=== PATIENT | male | born 1955 | race Caucasian/White ===

== ENCOUNTER 2017-06-22 20:33 | Inpatient (IN) ==
[2017-06-22 21:59] LABS: Bilirubin,Urine Negative (Negative); Blood,Urine Negative (Negative); Clarity,Urine Clear (Clear); Color,Urine Yellow (Yellow); Glucose,Urine (UA) >=1000 mg/dL (Normal); Ketones,Urine Negative (Negative); Leukocyte Esterase,Urine Negative (Negative); Nitrite,Urine Negative (Negative); Protein,Urine Negative (Neg-Trace); Specific Gravity,Urine > 1.030 (1.010-1.025); Urobilinogen,Urine Normal (Normal)
[2017-06-22 22:15] LABS: Basophils # 0.1 K/mcL (0.0-0.2); Basophils % 0.4 %; Eosinophils # 0.1 K/mcL (0.0-0.6); Eosinophils % 1.2 %; Hematocrit 45.7 % (37.5-50.1); Hemoglobin 15.5 g/dL (12.9-16.9); Immature Granulocytes % 0.5 % (0-4); Lymphocytes # 2.4 K/mcL (0.6-4.6); Lymphocytes % 20.8 %; Mean Corpuscular HGB Conc 33.9 g/dL (31.6-35.5); Mean Corpuscular Hemoglobin 28.1 pg (28.0-33.3); Mean Corpuscular Volume 82.9 fL (83.0-100.0); Mean Platelet Volume 9.9 fL (9.4-12.4); Monocytes # 0.9 K/mcL (0.0-1.3); Monocytes % 8.1 %; Platelet Count 252 K/mcL (140-400); Red Blood Count 5.51 M/mcL (4.19-5.50); Red Cell Distribution Width 11.9 % (11.5-14.5)
[2017-06-22 22:28] LABS: Albumin 4.3 g/dL (3.5-5.7); Bilirubin,Direct 0.1 mg/dL (0.0-0.2); Bilirubin,Indirect 0.6 mg/dL (0.0-1.2); Bilirubin,Total 0.7 mg/dL (0.3-1.0); Calcium 9.4 mg/dL (8.6-10.3); Carbon Dioxide 27 mEq/L (23-29); Chloride 95 mEq/L (98-107); Potassium 4.2 mEq/L (3.5-5.1); Sodium 130 mEq/L (136-145)
[2017-06-22 22:40] LABS: Alanine Aminotransferase 20 Units/L (7-52); Albumin/Globulin Ratio 1.5 (1.1-2.2); Alkaline Phosphatase 140 Units/L (34-104); Aspartate Amino Transferase 13 Units/L (13-39); BUN/Creatinine Ratio 13 (6-26); Blood Urea Nitrogen 12 mg/dL (8-23); Globulin 2.8 g/dL (2.4-3.5); Glucose 525 mg/dL (70-105); Lipase 44 Units/L (11-82); Osmolality,Calculated 293 (280-300); Total Protein 7.1 g/dL (6.4-8.9); eGFR For African Americans > 60 (> 60); eGFR For Non-African Americans > 60 (> 60)
--- NOTE | 2017-06-22 22:55 | Emergency Department Note ---
Disposition Clinical Impression: Diabetes mellitus, new onset, Diverticulitis Disposition: Admitted As Inpatient Condition: Good General Adult HPI - General Chief complaint: ED Nausea/Vomiting/Diarrhea Stated complaint: NV Time Seen by Provider: 06/22/17 20:46 Source: patient Mode of arrival: ambulatory Limitations: no limitations Nursing Notes Reviewed: Yes Vital Signs Reviewed: Yes - History of Present Illness HPI Narrative: Patient presents today for concern for flulike symptoms. Patient states he has had fever with associated nausea and body aches for the last 7 days. Patient was seen by PCP and started on a antinausea medicine which she does not know the name of. The patient states he has had associated cough and abdominal pain. Gage pain is in the left lower quadrant but he states is different than his previous diverticulitis. The patient's cough has been a dry cough that is worse with lying down. Nonproductive in nature. Symptoms initially started with generalized URI type symptoms. Sinus congestion. Sinus congestion has significantly resolved since initial presentation. Pain Scale: 4 - Related Data Home Medications Medication Instructions Recorded Confirmed Aspirin [Lo-Dose Aspirin EC] 81 mg PO DAILY 05/28/17 05/28/17 Cholecalciferol (D-3) [Vitamin D] 2,000 unit PO DAILY 05/28/17 05/28/17 Ezetimibe/Simvastatin [Vytorin 1 tab PO DAILY 05/28/17 05/28/17 10-40 mg Tablet] Lisinopril [Zestril] 5 mg PO DAILY 05/28/17 05/28/17 Metoprolol [Lopressor] 25 mg PO DAILY 05/28/17 05/28/17 Multivit-Min/FA/Lycopen/Lutein 1 tab PO DAILY 05/28/17 05/28/17 [Centrum Silver Men Tablet] Ranolazine [Ranexa] 500 mg PO Q12H 05/28/17 05/28/17 Allergies Allergy/AdvReac Type Severity Reaction Status Date / Time No Known Allergies Allergy Verified 06/22/17 20:46 Review of Systems: CONSTITUTIONAL: Fever, chills, weakness, fatigue HEENT: Eyes: No visual changes. Ears, Nose, Throat: No hearing loss, difficulty talking or unable to swallow. SKIN: No rash or itching. CARDIOVASCULAR: No chest pain, chest pressure or chest discomfort. No palpitations or edema. RESPIRATORY: Cough GASTROINTESTINAL: Abdominal pain associated nausea and decreased appetite. GENITOURINARY: No burning on urination or hematuria. NEUROLOGICAL: No headache, dizziness, syncope, paralysis, ataxia, numbness or tingling in the extremities. No change in bowel or bladder control. MUSCULOSKELETAL: No muscle pain, back pain, joint pain or stiffness. Past Medical History - Past Medical History Medical history: Reports: cardiomyopathy, hyperlipidemia, hypertension, myocardial infarction Psychiatric history: Reports: no psych history - Social History Smoking Status: Never smoker Smokeless Tobacco Status: Yes Alcohol use: Reports: none Drug use: Reports: none Physical Exam General: Well appearing, nontoxic, no acute distress Head: Normocephalic Atraumatic Eyes: PERRL, EOMI ENT: Airway patent, no stridor Neck: supple, no meningismus Chest: Lungs clear to auscultation bilateral Cardiac: Regular rate and rhythm, no murmurs, rubs or gallops Abdomen: Right lower quadrant tenderness without rebound or guarding. Musculoskeletal: Calves symmetric, nontender, no palpable cord Skin: No rash, normal skin tone Neuro: Alert and Oriented to person, place, and time; No focal deficit, CN 2-12 symmetric and intact - General General appearance: alert, in no apparent distress Course - Reevaluation(s) Reevaluation #1: Patient with elevated glucose. No history of diabetes. Patient with associated diverticulitis with inflammation on CT scan and elevated white count. - Consultations Consultation #1: Discussed with hospitalist. Patient accepted for admission. Vital Signs Temperature 98.3 F 06/22/17 20:45 Pulse Rate 115 06/22/17 20:45 Respiratory Rate 16 06/22/17 20:45 Blood Pressure 113/76 06/22/17 20:45 O2 Sat by Pulse Oximetry 97 06/22/17 20:45 Temperature 98.3 F 06/22/17 20:45 Pulse Rate 103 06/22/17 20:53 Respiratory Rate 18 06/22/17 20:53 Blood Pressure 119/79 06/22/17 20:53 O2 Sat by Pulse Oximetry 94 06/22/17 20:53 Oxygen Delivery Oxygen Delivery Room Air Medical Decision Making - Lab Data Result diagrams: 06/22/17 22:05 06/22/17 22:05 Lab Results 06/22/17 06/22/17 06/22/17 Range/Units 21:35 22:05 22:05 WBC 11.6 H (4.3-11.1) K/mcL RBC 5.51 H (4.19-5.50) M/mcL Hgb 15.5 (12.9-16.9) g/dL Hct 45.7 (37.5-50.1) % MCV 82.9 L (83.0-100.0) fL MCH 28.1 (28.0-33.3) pg MCHC 33.9 (31.6-35.5) g/dL RDW 11.9 (11.5-14.5) % Plt Count 252 (140-400) K/mcL MPV 9.9 (9.4-12.4) fL Immature Gran % 0.5 (0-4) % Seg Neutrophils % 69.0 % Lymphocytes % 20.8 % Monocytes % 8.1 % Eosinophils % 1.2 % Basophils % 0.4 % Neutrophils # 8.0 (1.6-8.9) K/mcL Lymphocytes # 2.4 (0.6-4.6) K/mcL Monocytes # 0.9 (0.0-1.3) K/mcL Eosinophils # 0.1 (0.0-0.6) K/mcL Basophils # 0.1 (0.0-0.2) K/mcL Sodium 130 L (136-145) mEq/L Potassium 4.2 (3.5-5.1) mEq/L Chloride 95 L (98-107) mEq/L Carbon Dioxide 27 (23-29) mEq/L Calcium 9.4 (8.6-10.3) mg/dL Total Bilirubin 0.7 (0.3-1.0) mg/dL Direct Bilirubin 0.1 (0.0-0.2) mg/dL Indirect Bilirubin 0.6 (0.0-1.2) mg/dL Albumin 4.3 (3.5-5.7) g/dL Urine Color Yellow (Yellow) Urine Clarity Clear (Clear) Urine pH 6.0 (5.0-8.0) pH Units Ur Specific [place] > 1.030 H (1.010-1.025) Urine Protein Negative (Neg-Trace) mg/dL Urine Glucose (UA) >=1000 H (Normal) mg/dL Urine Ketones Negative (Negative) mg/dL Urine Blood Negative (Negative) Urine Nitrite Negative (Negative) Urine Bilirubin Negative (Negative) Urine Urobilinogen Normal (Normal) mg/dL Ur Leukocyte Esterase Negative (Negative) Ur Culture Indicated? NO (NO)
--- NOTE | 2017-06-22 22:57 | Emergency Department Note ---
START Narrative - START START: I examined this patient and my medical decision-making was reviewed with the Resident Physician. I agree with the documented findings, disposition and treatment plan as described except to the extent set forth below. Pt with diverticulitis to the left sigmoid colon region hx of that in past had recent scope done as well problem is his sugars are elevated and appears to be a new diabetic i feel he should stay to get his sugars under control and iv antibiotics. pt in agreement.
[2017-06-22] MEDS ORDERED: MetroNIDAZOLE 500 MG/100 ML 500 MG/100 ML BAG IVPB ONE (22:59)
[2017-06-22] MEDS ORDERED: 0.9 % Sodium Chloride 1,000 ML IVC ONE (22:59)
[2017-06-22] MEDS ORDERED: Insulin Human Regular 4 UNIT in 0.9 % Sodium Chloride 10 ML IV ONE (23:00)
--- NOTE | 2017-06-22 23:40 | Internal Med History&Physical ---
Date of Encounter: 06/22/17 Time of Encounter: 23:35 Assessment and Plan (1) Acute diverticulitis Current visit: Yes Status: Acute NPO for now IV antibiotics IVF follow closely clinically (2) New onset type 2 diabetes mellitus Current visit: Yes Status: Acute ISS q6 for now check A1c consult parent educator , need insulin for home (3) CAD (coronary artery disease) Current visit: Yes Status: Acute s/p stent ASA continue cardiac med trop appears chronic, trend for now, no ACS symptoms Qualifiers: Coronary Disease-Associated Artery/Lesion type: [place] artery Associated angina: without angina Qualified Code(s): I25.10 - Atherosclerotic heart disease of [place] coronary artery without angina pectoris (4) HTN (hypertension), benign Current visit: Yes Status: Acute continue med Internal Medicine - H&P: HPI Chief complaint: LLQ pain, N/V History of present illness: Mr. Turpin is a 62 year old male who with hx of Lyme disease with chronic pain/ fatigue syndrome, [place] 2006 s/p stent x2 3-4 years ago, HTN, diverticular disease who presents with 1) acute diverticulitis and 2) new dx of DMII. He thought that he had the flu a week ago and had seen his PCP on friday and was prescribed some medications for his symptoms of cough and sinus congestion - it did not appeared he had tamiflu but just symptom relief meds. He later developed worsening LLQ pain, rate 2-3/10, sharp in quality, in the last few days associated with low grade fever 100 and some chills. Developed nausea and small volume emesis today. No diarrhea reported EKG personally reviewed with rate 95, T-wave inversion ant lead unchanged from prior EKG XR/XR chest 2V IMPRESSION: No acute cardiopulmonary abnormality. CT/CT abd pelvis wo no iv no oral IMPRESSION: Wall thickening and stranding surrounding the sigmoid colon within the left lower quadrant most compatible with acute diverticulitis. This is in a similar location when compared with previous exam from 2015. Recommend correlation with recent colonoscopy after appropriate therapy to exclude the possibility of any underlying lesion. Stable left renal cyst. Past Med Surg Social Fam HX - Past Medical History Medical history: cardiomyopathy, hyperlipidemia, hypertension, myocardial infarction Psychiatric history: no psych history - Past Surgical History Surgical History: non-contributory, angioplasty/stent - Social History Smoking Status: Never smoker Smokeless Tobacco Status: Yes Alcohol use: none Drug use: none - Additional Family History Additional family history: HTN Internal Medicine - H&P: Meds Aspirin [Lo-Dose Aspirin EC] 81 mg PO DAILY 05/28/17 [History] Cholecalciferol (D-3) [Vitamin D] 2,000 unit PO DAILY 05/28/17 [History] Ezetimibe/Simvastatin [Vytorin 10-40 mg Tablet] 1 tab PO DAILY 05/28/17 [History ] Lisinopril [Zestril] 5 mg PO DAILY 05/28/17 [History] Metoprolol [Lopressor] 25 mg PO DAILY 05/28/17 [History] Multivit-Min/FA/Lycopen/Lutein [Centrum Silver Men Tablet] 1 tab PO DAILY [History] Ranolazine [Ranexa] 500 mg PO Q12H 05/28/17 [History] 3 Allergy/AdvReac Type Severity Reaction Status Date / Time No Known Allergies Allergy Verified 06/22/17 20:46 All Systems PM: A 10-system review of systems was performed and is negative for pertinent findings except as documented above in the HPI. Review of systems: ROS 14 point review of systems reviewed as best as possible given presentation. Pertinent positive or negative as per HPI or otherwise reviewed as negative - Constitutional Vitals: Temp Pulse Resp BP Pulse Ox 98.3 F 92 18 122/87 94 06/22/17 20:45 06/22/17 22:46 06/22/17 22:46 06/22/17 22:46 06/22/17 22:46 Exam: General - AAO x 3 Psych - Appropriate affect/speech. No agitation Eyes - KATHY. Eye lids intact. No scleral icterus Heart - Sinus. RRR. S1 and S2 present. No added HS/murmurs appreciated. No elevated JVD appreciated. Lung - Adequate air entry b/l, No crackles/wheezes appreciated GI - LLQ discomfort. No hepatosplenomegaly/ascites. BS+ - No CVA/suprapubic tenderness or palpable bladder distension Skin - Intact. No rash/petechiae/ecchymosis. Warm extremities MSK - Joints with normal ROM. No joint swellings Internal Med - H&P Results - Labs CBC & Chem 7: 06/22/17 22:05 06/22/17 22:05 Labs: Short CBC 06/22/17 Range/Units 22:05 WBC 11.6 H (4.3-11.1) K/mcL Hgb 15.5 (12.9-16.9) g/dL Hct 45.7 (37.5-50.1) % Plt Count 252 (140-400) K/mcL Neutrophils # 8.0 (1.6-8.9) K/mcL BMP 06/22/17 22:05 Sodium 130 L Potassium 4.2 Chloride 95 L Carbon Dioxide 27 BUN 12 Creatinine 0.95 Glucose 525 H* Calcium 9.4 Cardiac Enzymes 06/22/17 Range/Units 22:05 Troponin I 0.04 H* (< 0.04) ng/mL Liver Function 06/22/17 Range/Units 22:05 Total Bilirubin 0.7 (0.3-1.0) mg/dL Direct Bilirubin 0.1 (0.0-0.2) mg/dL AST 13 (13-39) Units/L ALT 20 (7-52) Units/L Alkaline Phosphatase 140 H (34-104) Units/L Albumin 4.3 (3.5-5.7) g/dL Urine 06/22/17 Range/Units 21:35 Urine Color Yellow (Yellow) Urine Clarity Clear (Clear) Urine pH 6.0 (5.0-8.0) pH Units Ur Specific [place] > 1.030 H (1.010-1.025) Urine Protein Negative (Neg-Trace) mg/dL Urine Glucose (UA) >=1000 H (Normal) mg/dL - Impressions ITS Impressions Abdomen/Pelvis CT 06/22/17 21:22 IMPRESSION: Wall thickening and stranding surrounding the sigmoid colon within the left lower quadrant most compatible with acute diverticulitis. This is in a similar location when compared with previous exam from 2015. Recommend correlation with recent colonoscopy after appropriate therapy to exclude the possibility of any underlying lesion. Stable left renal cyst. D/ / Pavan Joseph MD / Pavan Joseph MD Interpreting Provider: Pavan Joseph MD Chest X-Ray 06/22/17 21:22 IMPRESSION: No acute cardiopulmonary abnormality. D/ / Lobo Llanes / Lobo Llanes Interpreting Provider: Lobo Llanes
[2017-06-22] MEDS ORDERED: Naloxone 0.4 MG/ML INJ IVP PRN (23:45)
[2017-06-22] MEDS ORDERED: *HR* FentaNYL (PF) 100 MCG/2 ML VIAL IVP PRN (23:47)
[2017-06-22] MEDS ORDERED: Ondansetron 4 MG/2 ML VIAL IVP PRN (23:47)
[2017-06-22] MEDS ORDERED: *HR* Dextrose 50 % in Water (Syg) 50 ML SYRINGE IVP PRN (23:48)
[2017-06-22] MEDS ORDERED: D5% in Water 1,000 ML IVC PRN (23:48)
[2017-06-22] MEDS ORDERED: Dextrose Gel 15 GM/37.5 ML TUBE PO PRN ×2 (23:48)
[2017-06-23] MEDS ORDERED: Insulin LISPRO 300 UNITS/3 ML VIAL SQ SCH
[2017-06-23] MEDS: 0.9 % Sodium Chloride 1,000 ML IVC SCH ×2 (00:41→14:55)
[2017-06-23 04:34] LABS: Basophils % 0.3 %; Eosinophils # 0.2 K/mcL (0.0-0.6); Eosinophils % 2.4 %; Hematocrit 40.9 % (37.5-50.1); Immature Granulocytes % 0.7 % (0-4); Lymphocytes % 33.2 %; Mean Corpuscular Hemoglobin 28.3 pg (28.0-33.3); Mean Corpuscular Volume 83.3 fL (83.0-100.0); Mean Platelet Volume 9.8 fL (9.4-12.4); Monocytes # 0.7 K/mcL (0.0-1.3); Monocytes % 7.7 %; Platelet Count 221 K/mcL (140-400); Red Blood Count 4.91 M/mcL (4.19-5.50); Red Cell Distribution Width 11.9 % (11.5-14.5); Segmented Neutrophils % 55.7 %
[2017-06-23 04:44] LABS: Hemoglobin 13.9 g/dL (12.9-16.9)
[2017-06-23 04:51] LABS: BUN/Creatinine Ratio 14 (6-26); Blood Urea Nitrogen 10 mg/dL (8-23); Calcium 8.6 mg/dL (8.6-10.3); Carbon Dioxide 25 mEq/L (23-29); Chloride 104 mEq/L (98-107); Glucose 187 mg/dL (70-105); Osmolality,Calculated 284 (280-300); Potassium 3.3 mEq/L (3.5-5.1); Sodium 135 mEq/L (136-145); eGFR For African Americans > 60 (> 60); eGFR For Non-African Americans > 60 (> 60)
[2017-06-23] MEDS: *HR* Enoxaparin 30 MG/0.3 ML SYRINGE SQ SCH (06:03)
[2017-06-23] MEDS: MetroNIDAZOLE 500 MG/100 ML 500 MG/100 ML BAG IVPB SCH ×2 (06:03→18:15)
[2017-06-23] MEDS: Insulin LISPRO 300 UNITS/3 ML VIAL SQ SCH ×3 (06:26→18:16)
[2017-06-23] MEDS: Aspirin Enteric Coated 81 MG Tablet PO SCH (15:20)
[2017-06-23] MEDS: Multivit/Ca/Min/Fe/FA 1 TAB TABLET PO SCH (15:20)
[2017-06-23] MEDS: Cholecalciferol (D-3) 1,000 UNIT TABLET PO SCH (15:20)
--- NOTE | 2017-06-23 15:44 | Internal Med Progress Note ---
Date of Encounter: 06/23/17 Time of Encounter: 15:41 - Assessment and plan (1) New onset type 2 diabetes mellitus Current Visit: Yes Status: Acute Assessment and plan: Patient presented to the emergency room for evaluation of what he thought was flulike symptoms and worsening left lower quadrant pain. He was incidentally found to have a blood sugar of 525 Patient returned glucose was greater than 1000. Hemoglobin A1c was obtained this morning and is 14 adaptive physical educator Diabetic diet whe advanced from clear liquids Accu-Cheks every 6 hours until taking a regular diet (2) Acute diverticulitis Current Visit: Yes Status: Acute Assessment and plan: Advanced to clear liquid diet and hold there until he is pain-free Continue IV fluids Continue Cipro and Flagyl IV If still symptomatic in a.m. would consider GI consult (3) CAD (coronary artery disease) Current Visit: Yes Status: Chronic Assessment and plan: Status post stent Continue aspirin Continue cardiac meds Troponin 0.04 Patient is chest pain-free and never had chest pain. His report Qualifiers: Coronary Disease-Associated Artery/Lesion type: [place] artery Associated angina: without angina Qualified Code(s): I25.10 - Atherosclerotic heart disease of [place] coronary artery without angina pectoris (4) HTN (hypertension), benign Current Visit: Yes Status: Chronic Assessment and plan: Since blood pressure was a little soft from nausea and vomiting We will resume home medicines but monitor blood pressure closely (5) Hyperkalemia Current Visit: Yes Status: Acute Assessment and plan: Replaced and will recheck in a.m. likely secondary to nausea and vomiting - Subjective Interval history: Patient is lying in bed with some left lower quadrant abdominal pain that he states is not too bad. He was very hungry. No further nausea or vomiting. Going to try a clear liquid diet is at the bedside asking many questions about his new diagnosis of diabetes mellitus. His hemoglobin A1c was 14 and we discussed that and what it meant. Explained we will have a asthma educator see him and give him all the chills he needs to be successful on discharge he will follow-up with his primary care physician. He denies nausea, vomiting, fever, chills, chest pain, shortness of breath, headache. He does feel a little overwhelmed with the new diabetes diagnosis. - Constitutional Vitals: Temp Pulse Resp BP Pulse Ox 98.8 F 82 18 113/74 95 06/23/17 15:27 06/23/17 15:27 06/23/17 15:27 06/23/17 15:27 06/23/17 15:27 General appearance: Present: cooperative, A&O X 3, pleasant, no acute distress, answers questions appropriately - Head Head exam: Present: atraumatic, normocephalic - Eye Eye exam: Present: PERRL, conjuntiva pink, sclera anicteric Pupils: Present: PERRL - Neck Neck exam general surgery: Present: supple, trachea midline. Absent: lymphadenopathy - Respiratory Respiratory exam: Present: CTAB. Absent: accessory muscle use, rales, rhonchi, wheezes - Cardiovascular Cardiovascular exam: Present: RRR, +S1, +S2. Absent: diastolic murmur, gallop, rubs, systolic murmur - GI/Abdominal GI/Abdominal exam: Present: normal bowel sounds, soft, tenderness (Abdomen is soft and nondistended, tender to left lower quadrant to palpation), no peritoneal signs. Absent: distended - Extremities Exam Extremities exam: Present: warm, radial pulses palpable and symmetrical. Absent : calf tenderness, cyanotic, pedal edema - Neurological Exam Neurological exam: Present: CN II-XII intact, oriented X3, no focal deficits. Absent: pronater drift, facial droop, speech deficit - Skin Skin exam: Present: dry, intact Internal Medicine: Result - Labs CBC & Chem 7: 06/23/17 04:17 06/23/17 04:17 Labs: Short CBC 06/23/17 Range/Units 04:17 WBC 8.9 (4.3-11.1) K/mcL Hgb 13.9 D (12.9-16.9) g/dL Hct 40.9 (37.5-50.1) % Plt Count 221 (140-400) K/mcL Neutrophils # 5.0 (1.6-8.9) K/mcL BMP 06/23/17 04:17 Sodium 135 L Potassium 3.3 L Chloride 104 Carbon Dioxide 25 BUN 10 Creatinine 0.71 Glucose 187 H Calcium 8.6 Cardiac Enzymes 06/23/17 06/23/17 Range/Units 04:17 10:13 Troponin I 0.04 H* 0.04 H* (< 0.04) ng/mL Consult Discharge Plan - Plan Referrals: José Luis Julien, [Primary Care Provider] -
--- NOTE | 2017-06-23 17:45 | Electrocardiograph Report ---
[place] [id number] Test Date: 2017-06-22 Pat Name: Christian Turpin Department: 102 Room: 3B37 Gender: M Photo Intern: Scotty : 1955 Requested By: Goldy Guerra Order Number: [id number] Reading MD: Melvin Cronin DO Measurements Intervals [place] Rate: 95 P: 61 DC: 129 QRS: -29 QRSD: 113 T: 129 QT: 364 QTc: 416 Interpretive Statements SINUS RHYTHM BORDERLINE LEFT AXIS DEVIATION MODERATE INTRAVENTRICULAR CONDUCTION DELAY LEFT VENTRICULAR HYPERTROPHY ANTEROLATERAL ST-T CHANGES DUE TO HYPERTROPHY AND/OR ISCHEMIA Electronically Signed On 06-23-2017 17:44:13 EST by Melvin Cronin DO
[2017-06-23] MEDS: Ranolazine 500 MG TAB.ER.12H PO SCH (18:16)
[2017-06-24] MEDS: Insulin LISPRO 300 UNITS/3 ML VIAL SQ SCH ×4 (00:48→17:45)
[2017-06-24] MEDS: MetroNIDAZOLE 500 MG/100 ML 500 MG/100 ML BAG IVPB SCH ×3 (03:15→17:45)
[2017-06-24] MEDS: Ranolazine 500 MG TAB.ER.12H PO SCH ×2 (05:26→17:45)
[2017-06-24] MEDS: *HR* Enoxaparin 30 MG/0.3 ML SYRINGE SQ SCH (05:26)
[2017-06-24 06:13] LABS: Basophils % 0.3 %; Eosinophils # 0.2 K/mcL (0.0-0.6); Eosinophils % 1.5 %; Hematocrit 39.5 % (37.5-50.1); Hemoglobin 13.2 g/dL (12.9-16.9); Immature Granulocytes % 0.5 % (0-4); Lymphocytes # 1.6 K/mcL (0.6-4.6); Mean Corpuscular HGB Conc 33.4 g/dL (31.6-35.5); Mean Corpuscular Hemoglobin 28.4 pg (28.0-33.3); Mean Corpuscular Volume 85.1 fL (83.0-100.0); Monocytes # 0.7 K/mcL (0.0-1.3); Monocytes % 6.4 %; Neutrophils # 8.6 K/mcL (1.6-8.9); Platelet Count 230 K/mcL (140-400); Red Blood Count 4.64 M/mcL (4.19-5.50); Segmented Neutrophils % 77.3 %
[2017-06-24 06:32] LABS: BUN/Creatinine Ratio 10 (6-26); Blood Urea Nitrogen 8 mg/dL (8-23); Calcium 8.6 mg/dL (8.6-10.3); Carbon Dioxide 25 mEq/L (23-29); Chloride 105 mEq/L (98-107); Glucose 222 mg/dL (70-105); Magnesium 1.5 mg/dL (1.6-2.6); Osmolality,Calculated 289 (280-300); Potassium 4.2 mEq/L (3.5-5.1); Sodium 137 mEq/L (136-145); eGFR For African Americans > 60 (> 60); eGFR For Non-African Americans > 60 (> 60)
[2017-06-24 06:56] LABS: Adenovirus Not Detected (Not Detect); Coronavirus 229E Not Detected (Not Detect); Coronavirus HKU1 Not Detected (Not Detect); Coronavirus NL63 Not Detected (Not Detect)
[2017-06-24 06:57] LABS: Bordetella Pertussis Not Detected (Not Detect); Chlamydophila pneumoniae Not Detected (Not Detect); Coronavirus OC43 Not Detected (Not Detect); Human Metapneumovirus Not Detected (Not Detect); Human Rhinovirus/Enterovirus Not Detected (Not Detect); Influenza A Subtype 2009 H1 Not Detected (Not Detect); Influenza A Untypeable Not Detected (Not Detect); Influenza B Not Detected (Not Detect); Mycoplasma pneumoniae Not Detected (Not Detect); Parainfluenza Virus 1 Not Detected (Not Detect); Parainfluenza Virus 2 Not Detected (Not Detect); Parainfluenza Virus 3 Not Detected (Not Detect); Parainfluenza Virus 4 Not Detected (Not Detect); Respiratory Syncytial Virus ***DETECTED*** (Not Detect)
[2017-06-24] MEDS: Cholecalciferol (D-3) 1,000 UNIT TABLET PO SCH (08:00)
[2017-06-24] MEDS: Aspirin Enteric Coated 81 MG Tablet PO SCH (08:00)
[2017-06-24] MEDS: SIMVASTATIN PO SCH (08:00)
[2017-06-24] MEDS: Multivit/Ca/Min/Fe/FA 1 TAB TABLET PO SCH (08:00)
[2017-06-24] MEDS: EZETIMIBE PO SCH (08:00)
--- NOTE | 2017-06-24 18:39 | Internal Med Progress Note ---
Date of Encounter: 06/24/17 Time of Encounter: 09:50 - Assessment and plan (1) Acute diverticulitis Current Visit: Yes Status: Acute Assessment and plan: Diet advanced to full liquid. Pt reports continued LLQ pain. Advance as tolerated. Abdomen/Pelvis CT 06/22/17 21:22 IMPRESSION: Wall thickening and stranding surrounding the sigmoid colon within the left lower quadrant most compatible with acute diverticulitis. This is in a similar location when compared with previous exam from 2015. Recommend correlation with recent colonoscopy after appropriate therapy to exclude the possibility of any underlying lesion. Stable left renal cyst. D/ / Pavan Joseph MD / Pavan Joseph MD Interpreting Provider: Pavan Joseph MD (2) Diabetes mellitus, new onset Current Visit: Yes Status: Acute Assessment and plan: New onset. Would like to have BS below 200 prior to discharge. Pt will need close monitoring of blood sugar and repeated instruction on diet. Discharge with insulin and supplies, glucometer and supplies. Make sure pt has appt for diabetes education. (3) CAD (coronary artery disease) Current Visit: Yes Status: Chronic Assessment and plan: Pt denies chest pain. Continue ASA, BB, Ranexa, . Qualifiers: Coronary Disease-Associated Artery/Lesion type: [place] artery Associated angina: without angina Qualified Code(s): I25.10 - Atherosclerotic heart disease of [place] coronary artery without angina pectoris (4) HTN (hypertension), benign Current Visit: Yes Status: Chronic Assessment and plan: Chronic. Continue home medications. Well controlled. (5) DVT prophylaxis Current Visit: Yes Status: Acute Assessment and plan: Lovenox SQ. - Time Spent With Patient less than 15 minutes - Subjective Interval history: Pt was seen and assessed at 0950. Pt had multiple questions regarding his diagnosis and how to eat, check his blood sugar, etc. All questions answered. He denies headache, blurred vision, abdominal pain, n/v/d, chest pain, SOB. - Constitutional Vitals: Temp Pulse Resp BP Pulse Ox 98.4 F 83 16 118/57 98 06/24/17 15:18 06/24/17 15:18 06/24/17 15:18 06/24/17 15:18 06/24/17 15:18 General appearance: Present: cooperative, A&O X 3, pleasant, no acute distress, answers questions appropriately Internal Medicine: Result - Labs CBC & Chem 7: 06/24/17 05:50 06/24/17 05:50 Labs: Short CBC 06/24/17 Range/Units 05:50 WBC 11.2 H (4.3-11.1) K/mcL Hgb 13.2 (12.9-16.9) g/dL Hct 39.5 (37.5-50.1) % Plt Count 230 (140-400) K/mcL Neutrophils # 8.6 (1.6-8.9) K/mcL BMP 06/24/17 05:50 Sodium 137 Potassium 4.2 Chloride 105 Carbon Dioxide 25 BUN 8 Creatinine 0.84 Glucose 222 H Calcium 8.6 Consult Discharge Plan - Plan Referrals: José Luis Julien DO [Primary Care Provider] -
[2017-06-25] MEDS: Insulin LISPRO 300 UNITS/3 ML VIAL SQ SCH ×3 (00:07→12:43)
[2017-06-25] MEDS: MetroNIDAZOLE 500 MG/100 ML 500 MG/100 ML BAG IVPB SCH ×2 (03:11→08:44)
[2017-06-25 04:45] LABS: Basophils % 0.5 %; Eosinophils # 0.3 K/mcL (0.0-0.6); Eosinophils % 4.8 %; Hematocrit 38.8 % (37.5-50.1); Hemoglobin 12.7 g/dL (12.9-16.9); Immature Granulocytes % 0.5 % (0-4); Lymphocytes # 2.1 K/mcL (0.6-4.6); Lymphocytes % 35.3 %; Mean Corpuscular HGB Conc 32.7 g/dL (31.6-35.5); Mean Corpuscular Hemoglobin 27.8 pg (28.0-33.3); Mean Corpuscular Volume 84.9 fL (83.0-100.0); Mean Platelet Volume 9.7 fL (9.4-12.4); Monocytes # 0.6 K/mcL (0.0-1.3); Monocytes % 10.1 %; Neutrophils # 2.9 K/mcL (1.6-8.9); Platelet Count 225 K/mcL (140-400); Red Blood Count 4.57 M/mcL (4.19-5.50); Segmented Neutrophils % 48.8 %
[2017-06-25 05:01] LABS: BUN/Creatinine Ratio 8 (6-26); Blood Urea Nitrogen 6 mg/dL (8-23); Calcium 8.6 mg/dL (8.6-10.3); Carbon Dioxide 27 mEq/L (23-29); Chloride 107 mEq/L (98-107); Glucose 167 mg/dL (70-105); Osmolality,Calculated 289 (280-300); Potassium 3.5 mEq/L (3.5-5.1); Sodium 139 mEq/L (136-145); eGFR For African Americans > 60 (> 60); eGFR For Non-African Americans > 60 (> 60)
[2017-06-25] MEDS: *HR* Enoxaparin 30 MG/0.3 ML SYRINGE SQ SCH (06:30)
[2017-06-25] MEDS: Ranolazine 500 MG TAB.ER.12H PO SCH (06:30)
[2017-06-25] MEDS: Multivit/Ca/Min/Fe/FA 1 TAB TABLET PO SCH (08:43)
[2017-06-25] MEDS: Aspirin Enteric Coated 81 MG Tablet PO SCH (08:44)
[2017-06-25] MEDS: Cholecalciferol (D-3) 1,000 UNIT TABLET PO SCH (08:44)
[2017-06-25] MEDS: EZETIMIBE PO SCH (10:54)
[2017-06-25] MEDS: SIMVASTATIN PO SCH (10:54)
[2017-06-25] MEDS ORDERED: metroNIDAZOLE 500 MG TABLET PO SCH (11:00)
--- NOTE | 2017-06-25 11:34 | Discharge Summary ---
Date of Encounter: 06/25/17 Time of Encounter: 08:50 - Discharge Diagnosis (1) Acute diverticulitis Priority: Primary Status: Acute Comments: Diet advanced to ADA diet. Pt reports continued LLQ pain, only with palpation. No n/v/d. Pt will continue po Cipro and Flagyl outpatient and follow up with PCP for recheck. Abdomen/Pelvis CT 06/22/17 21:22 IMPRESSION: Wall thickening and stranding surrounding the sigmoid colon within the left lower quadrant most compatible with acute diverticulitis. This is in a similar location when compared with previous exam from 2015. Recommend correlation with recent colonoscopy after appropriate therapy to exclude the possibility of any underlying lesion. Stable left renal cyst. D/ / Pavan Joseph MD / Pavan Joseph MD Interpreting Provider: Pavan Joseph MD (2) Diabetes mellitus, new onset Priority: Secondary Status: Acute Comments: New onset. Serum glucose 167 this a.m. Despite repeated instruction, pt seems to have difficulty with diet. Spoke with collaborating physician, recommends po medications and close follow up with manager diabetes and endocrinology. Discharge with rx for glucometer, lancets, and test strips. Dietiician to speak with pt prior to discharge. He has received extensive verbal and print education. Web request entered for appointments with manager diabetes and endocrinology. (3) CAD (coronary artery disease) Priority: Secondary Status: Chronic Comments: Pt denies chest pain. Continue ASA, Ranexa, and BB Qualifiers: Coronary Disease-Associated Artery/Lesion type: [place] artery Associated angina: without angina Qualified Code(s): I25.10 - Atherosclerotic heart disease of [place] coronary artery without angina pectoris (4) HTN (hypertension), benign Priority: Secondary Status: Chronic Comments: Chronic. Continue home medications. Well controlled in hospital setting. (5) DVT prophylaxis Priority: Secondary Status: Acute Comments: Lovenox SQ - Discharge Medications Prescriptions: Ciprofloxacin HCl [Cipro] 500 mg PO BID #10 tablet metFORMIN [Glucophage] 500 mg PO BIDWM #60 tablet metroNIDAZOLE [Flagyl] 500 mg PO TID #15 tablet SitaGLIPtin [Januvia] 25 mg PO DAILY #30 tablet Home Medications: Aspirin [Lo-Dose Aspirin EC] 81 mg PO DAILY 05/28/17 [History] Cholecalciferol (D-3) [Vitamin D] 2,000 unit PO DAILY 05/28/17 [History] Ezetimibe/Simvastatin [Vytorin 10-40 mg Tablet] 1 tab PO DAILY 05/28/17 [History ] Lisinopril [Zestril] 5 mg PO DAILY 05/28/17 [History] Metoprolol [Lopressor] 25 mg PO DAILY 05/28/17 [History] Multivit-Min/FA/Lycopen/Lutein [Centrum Silver Men Tablet] 1 tab PO DAILY [History] Ranolazine [Ranexa] 500 mg PO Q12H 05/28/17 [History] Ciprofloxacin HCl [Cipro] 500 mg PO BID #10 tablet 06/25/17 [Rx] SitaGLIPtin [Januvia] 25 mg PO DAILY #30 tablet 06/25/17 [Rx] metFORMIN [Glucophage] 500 mg PO BIDWM #60 tablet 06/25/17 [Rx] metroNIDAZOLE [Flagyl] 500 mg PO TID #15 tablet 06/25/17 [Rx] Allergies/Adverse Reactions: 3 Allergy/AdvReac Type Severity Reaction Status Date / Time No Known Allergies Allergy Verified 06/22/17 20:46 Date of admission: 06/22/17 23:45 Primary care physician: José Luis Julien DO Consults: 06/22/17 23:51 Consult to Diabetes Education [CONS] Routine Comment: Reason for Consult: new insulin useer 06/25/17 09:13 dietary consult [Consult to Nutrition] [CONS] Routine Comment: New Diabetic, carb education Consulting Provider: NUTRITION Reason for Dietary Consult: Diet Education Discharging clinician: Lakia Tyler Anticipated date of discharge: 06/25/17 - Patient Status Disposition: Home, Self-Care Condition: Good Functional capacity at discharge: independent ambulation Overall status at discharge: patient is progressing back to baseline - Discharge Instructions Follow Up With: Savanna Diamond, EDVIN [Advanced Practice Nurse] - (We have requeted an appointment and the office will call within 24 hours. ) José Luis Julien DO [Primary Care Provider] - Additional Instructions: Follow up with PCP, endocrinology, and manager diabetes as scheduled. It is important that you take your medications exactly as directed and follow your diabetic diet closely. Check your blood sugar every morning when you wake up before you eat or drink anything, 2 hours after dinner, and at bedtime. Record your blood sugar levels and take your log to the doctor with you. Return to the ER as needed for any other problems or concerns, or if your symptoms return or worsen. Return to your normal level of activity. - Diet and Activity Activity: increase activity as tolerated Diet: diabetic diet, low fat, low cholesterol Hospital course: Mr. Turpin is a 62 year old male past medical history of diverticulitis, coronary artery disease, hypertension. Presented to the emergency room with abdominal pain and flulike symptoms. Patient reports fever and bodyaches for [address] abdomen and pelvis revealed acute diverticulitis and patient was placed on Cipro and Flagyl IV, he is going to be discharged with by mouth medications to continue the course at home. Patient was diagnosed with new onset type 2 diabetes. It is he was 14.0%. Patient has had significant amount of diet and medication education, he appears to struggle with the information. We have made sure he will follow up with primary care, endocrinology, and diabetes education. Dietitian will visit patient provided education prior to discharge. He is being discharged with prescriptions for metformin 500 mg by mouth twice a day, Januvia 25 mg daily, handwritten prescriptions for glucometer , lancets, and test strips. He reports mild left lower quadrant pain with palpation only, no nausea, vomiting, or diarrhea. He is able to tolerate regular foods with an ADA diet. Patient with positive RSV PCR. Symptomatic treatment at home. Patient does not exhibit URI symptoms at this time. Vital signs are stable and within normal limits. Labs are stable. Patient is stable and appropriate for discharge. - Time Spent with Patient Total time spent providing and/or coordinating discharge services: Less than 30 minutes - Constitutional Vitals: Temp Pulse Resp BP Pulse Ox 97.9 F 72 17 115/69 99 06/25/17 06:27 06/25/17 06:27 06/25/17 06:27 06/25/17 06:27 06/25/17 06:27 General appearance: Present: cooperative, A&O X 3, pleasant, no acute distress, answers questions appropriately - Head Head exam: Present: atraumatic, normal inspection, normocephalic - Eye Eye exam: Present: normal appearance, conjuntiva pink, sclera anicteric - Neck Neck exam general surgery: Present: supple, trachea midline. Absent: lymphadenopathy, tenderness - Respiratory Respiratory exam: Present: CTAB. Absent: accessory muscle use, rales, rhonchi, wheezes - Cardiovascular Cardiovascular exam: Present: RRR, +S1, +S2. Absent: diastolic murmur, gallop, rubs, systolic murmur - GI/Abdominal GI/Abdominal exam: Present: normal bowel sounds, soft, tenderness. Absent: distended - Extremities Exam Extremities exam: Present: normal capillary refill, normal inspection, warm, radial pulses palpable and symmetrical. Absent: calf tenderness, cyanotic, pedal edema, tenderness - Neurological Exam Neurological exam: Present: alert, oriented X3, no focal deficits. Absent: facial droop, speech deficit - Skin Skin exam: Present: dry, intact, normal color, warm. Absent: rash
[2017-06-25 12:09] VITALS: BP 120/84
== END 2017-06-25 15:44 | disposition home or self-care (01) | DRG 392 ==
LOC: EMEROO 20:33 → 3BNU 20:33
PROVIDERS: ADMIT Internal Medicine Hematology & Oncology; ATTEND Registered Nurse

== ENCOUNTER 2019-03-03 15:17 | Observation (INO) ==
[2019-03-03] MEDS ORDERED: Aspirin 325 MG TABLET PO ONE (15:34)
[2019-03-03] MEDS ORDERED: *HR* FentaNYL (PF) 100 MCG/2 ML VIAL IVP ONE (16:19)
[2019-03-03 16:31] LABS: Basophils % 0.5 %; Eosinophils # 0.4 K/mcL (0.0-0.6); Eosinophils % 4.3 %; Hematocrit 41.3 % (37.5-50.1); Hemoglobin 14.1 g/dL (12.9-16.9); Immature Granulocytes % 0.4 % (0-4); Lymphocytes # 2.4 K/mcL (0.6-4.6); Lymphocytes % 28.9 %; Mean Corpuscular HGB Conc 34.1 g/dL (31.6-35.5); Mean Corpuscular Hemoglobin 29.7 pg (28.0-33.3); Mean Corpuscular Volume 86.9 fL (83.0-100.0); Mean Platelet Volume 9.8 fL (9.4-12.4); Monocytes # 0.6 K/mcL (0.0-1.3); Monocytes % 7.8 %; Neutrophils # 4.7 K/mcL (1.6-8.9); Platelet Count 267 K/mcL (140-400); Red Blood Count 4.75 M/mcL (4.19-5.50); Red Cell Distribution Width 12.4 % (11.5-14.5); Segmented Neutrophils % 58.1 %; White Blood Count 8.1 K/mcL (4.3-11.1)
[2019-03-03 16:56] LABS: Alanine Aminotransferase 24 Units/L (7-52); Albumin 4.1 g/dL (3.5-5.7); Albumin/Globulin Ratio 1.9 (1.1-2.2); Alkaline Phosphatase 70 Units/L (34-104); Aspartate Amino Transferase 19 Units/L (13-39); BUN/Creatinine Ratio 18 (6-26); Bilirubin,Total 0.3 mg/dL (0.3-1.0); Blood Urea Nitrogen 15 mg/dL (8-23); Calcium 9.6 mg/dL (8.6-10.3); Carbon Dioxide 27 mEq/L (23-29); Chloride 104 mEq/L (98-107); Globulin 2.2 g/dL (2.4-3.5); Glucose 128 mg/dL (70-105); Osmolality,Calculated 292 (280-300); Potassium 4.1 mEq/L (3.5-5.1); Sodium 140 mEq/L (136-145); Total Protein 6.3 g/dL (6.4-8.9); eGFR For African Americans > 60 (> 60); eGFR For Non-African Americans > 60 (> 60)
[2019-03-03] MEDS ORDERED: Nitroglycerin 0.4 MG TAB.SUBL SL PRN (18:27)
[2019-03-03] MEDS: Ranolazine 500 MG TAB.ER.12H PO SCH (23:47)
[2019-03-04 01:15] LABS: Basophils % 0.5 %; Eosinophils # 0.3 K/mcL (0.0-0.6); Eosinophils % 4.4 %; Hematocrit 40.7 % (37.5-50.1); Hemoglobin 13.4 g/dL (12.9-16.9); Immature Granulocytes % 0.1 % (0-4); Lymphocytes # 2.5 K/mcL (0.6-4.6); Mean Corpuscular HGB Conc 32.9 g/dL (31.6-35.5); Mean Corpuscular Hemoglobin 29.6 pg (28.0-33.3); Mean Corpuscular Volume 89.8 fL (83.0-100.0); Mean Platelet Volume 9.6 fL (9.4-12.4); Monocytes # 0.6 K/mcL (0.0-1.3); Monocytes % 8.2 %; Neutrophils # 4.1 K/mcL (1.6-8.9); Platelet Count 232 K/mcL (140-400); Red Blood Count 4.53 M/mcL (4.19-5.50); Red Cell Distribution Width 12.4 % (11.5-14.5); Segmented Neutrophils % 53.8 %; White Blood Count 7.6 K/mcL (4.3-11.1)
[2019-03-04 01:22] LABS: Prothrombin Time 11.8 Seconds (9.4-12.1)
[2019-03-04 01:35] LABS: Alanine Aminotransferase 21 Units/L (7-52); Albumin 3.8 g/dL (3.5-5.7); Albumin/Globulin Ratio 1.9 (1.1-2.2); Alkaline Phosphatase 71 Units/L (34-104); Aspartate Amino Transferase 17 Units/L (13-39); BUN/Creatinine Ratio 18 (6-26); Bilirubin,Total 0.4 mg/dL (0.3-1.0); Blood Urea Nitrogen 16 mg/dL (8-23); Calcium 8.9 mg/dL (8.6-10.3); Carbon Dioxide 29 mEq/L (23-29); Chloride 108 mEq/L (98-107); Glucose 164 mg/dL (70-105); Magnesium 1.7 mg/dL (1.6-2.6); Osmolality,Calculated 295 (280-300); Potassium 3.7 mEq/L (3.5-5.1); Sodium 140 mEq/L (136-145); Total Protein 5.8 g/dL (6.4-8.9); eGFR For African Americans > 60 (> 60); eGFR For Non-African Americans > 60 (> 60)
[2019-03-04] MEDS: Ranolazine 500 MG TAB.ER.12H PO SCH (07:14)
[2019-03-04] MEDS ORDERED: Multivit/Ca/Min/Fe/FA 1 TAB TABLET PO SCH (09:00)
[2019-03-04] MEDS ORDERED: Aspirin Enteric Coated 81 MG Tablet PO SCH (09:00)
[2019-03-04] MEDS ORDERED: Cholecalciferol (D-3) 1,000 UNIT (25MCG) TABLET PO SCH (09:00)
[2019-03-04] MEDS ORDERED: Regadenoson 0.4 MG/5 ML SYRINGE IVP ONE (12:31)
[2019-03-04] MEDS ORDERED: ISOVUE-370 200 ML INFUS..BTL ONE (13:22)
[2019-03-04] MEDS ORDERED: Nitroglycerin 1,000 MCG/10 ML VIAL IV ONE (13:22)
[2019-03-04] MEDS ORDERED: Heparin 1,000 UNITS/500 mL 500 ML ONE (13:22)
[2019-03-04] MEDS ORDERED: *HR* Midazolam HCl 2 MG/2 ML VIAL ONE (13:22)
[2019-03-04] MEDS ORDERED: 0.9 % Sodium Chloride 2,000 ML ONE (13:22)
[2019-03-04] MEDS ORDERED: *HR* Heparin 10,000 UNIT/10 ML VIAL ONE (13:22)
[2019-03-04] MEDS ORDERED: Verapamil 5 MG/2 ML VIAL ONE (13:32)
[2019-03-04 17:08] VITALS: BP 155/82
== END 2019-03-04 17:12 | disposition home or self-care (01) ==
LOC: SUATTDRO → 3BNU 15:17 → EMEROOARM 15:17 → SUATTDRO 18:52 → 3BNU 19:50
PROVIDERS: ADMIT Student in an Organized Health Care Education/Training Program; ATTEND Family Medicine